=== PATIENT | female | born 1950 ===

== ENCOUNTER 2018-11-02 08:07 | Outpatient (CLI) | payer OTHER | END 2018-11-02 09:26 | disposition home or self-care (01) | LOC: SONOGRAMA 08:07 | DX: E04.1 Nontoxic single thyroid nodule (principal) ==

== ENCOUNTER 2024-01-11 13:32 | Outpatient (CLI) | payer OTHER | END 2024-01-11 13:34 | disposition home or self-care (01) | LOC: SONOGRAMA 13:32 | DX: E04.1 Nontoxic single thyroid nodule (principal) ==

== ENCOUNTER 2024-02-22 08:04 | Outpatient (CLI) | payer OTHER | END 2024-02-22 08:07 | disposition home or self-care (01) | LOC: SONOGRAMA 08:04 | PROVIDERS: ATTEND Pathology Anatomic Pathology & Clinical Pathology | DX: E04.1 Nontoxic single thyroid nodule (principal); D34 Benign neoplasm of thyroid gland ==